=== PATIENT | male | born 1950 ===

== ENCOUNTER 2021-10-09 05:43 | Day surgery (SDC) | payer OTHER ==
[~2021-10-09 05:43] MED LIST: GLIPIZIDE XL10 MG PO; HYDROCHLOROTHIA25 MG PO; METFORMIN HCL500 M3 PO; NORVASC5 MG PO; TAMS0.4C PO; TOPROL XL200 MG PO; ZESTRIL40 M1 PO
== END 2021-10-09 15:10 | disposition home or self-care (01) ==
LOC: CIR.AMB 05:43
PROVIDERS: ATTEND Colon & Rectal Surgery
DX: K60.1 Chronic anal fissure (principal); I10 Essential (primary) hypertension; E11.9 Type 2 diabetes mellitus without complications; E66.9 Obesity, unspecified; Z79.84 Long term (current) use of oral hypoglycemic drugs; Z20.822 Contact with and (suspected) exposure to COVID-19